=== PATIENT | female | born 1970 | race Caucasian/White ===

== ENCOUNTER 2018-10-12 16:22 | Emergency (ER) | payer MEDICAID ==
[~2018-10-12] VITALS: Ht 147.3 cm; Wt 47.7 kg
[2018-10-12 16:50] VITALS: BP 154/99
--- NOTE | 2018-10-12 20:00 | NUR ---
Patient transferred to bed 11 via wheelchair by nurse. RN evaluating patient and family at bedside.
--- NOTE | 2018-10-12 20:12 | NUR ---
Dr. Joyner evaluating patient at bedside.
[2018-10-12] MEDS ORDERED: PROCHLORPERAZINE 10 MG/2 ML VIAL IVP ONE (20:15)
[2018-10-12] MEDS ORDERED: KETOROLAC 30 MG/ML VIAL IVP ONE (20:15)
--- NOTE | 2018-10-12 20:23 | NUR ---
48 Y/O F PRESENTED TO ED WITH HEADACHE X3 DAYS. AAO4. PER PT HEADACHE IS SHARP AND THROBBING. HAS BEEN EXPERIENCING DIZZINESS. C/O OF BEING FATIGUED. NO VISION CHANGES NOTED. DENIES PMH. NKA. BEDRAILS X2 UP. HOB ELEVATED FOR COMFORT. MD NOTIFIED. WILL CONTINUET TO MONITOR.
[2018-10-12] MEDS ORDERED: INSULIN REGULAR, HUMAN 100 UNIT/ML VIAL SUBQ ONE (21:05)
[2018-10-12] MEDS ORDERED: NACL 0.9% 1,000 ML IV ONE (21:05)
[2018-10-12 21:28] LABS: BASOPHILS % (AUTO) 0.4 % (0.0-2.0); EOSINOPHILS # (AUTO) 0.1 K/uL (0-0.4); EOSINOPHILS % (AUTO) 0.8 % (0.0-4.0); HEMATOCRIT 43.4 % (36-48); HEMOGLOBIN 14.6 g/dL (12.0-16.0); LYMPHOCYTES # (AUTO) 2.5 K/uL (2.5-16.5); LYMPHOCYTES % (AUTO) 32.2 % (20.5-51.1); MEAN CORPUSCULAR HEMOGLOBIN 29 pg (27-31); MEAN CORPUSCULAR HGB CONC 34 g/dL (33-37); MEAN CORPUSCULAR VOLUME 86.4 fL (80-94); MONOCYTES # (AUTO) 0.1 K/uL (0.8-1.0); MONOCYTES % (AUTO) 1.7 % (1.7-9.3); NEUTROPHILS % (AUTO) 64.9 % (42.2-75.2); PLATELET COUNT (AUTO) 299 K/uL (140-450); RED BLOOD CELL COUNT(AUTO) 5.02 MIL/uL (4.20-5.40); WHITE BLOOD COUNT (AUTO) 7.7 K/uL (4.8-10.8)
[2018-10-12 21:34] LABS: APPEARANCE,URINE HAZY (CLEAR); BILIRUBIN,URINE NEGATIVE (NEGATIVE); BLOOD, URINE 1+ (NEGATIVE); COLOR,URINE YELLOW (YELLOW); LEUKOCYTE ESTERASE ,URINE NEGATIVE (NEGATIVE); NITRITE, URINE NEGATIVE (NEGATIVE); UGLUCOSE NEGATIVE (NEGATIVE)
--- NOTE | 2018-10-12 21:50 | NUR ---
BS 51. NOTIFIED ADND ORDER D50.
[2018-10-12] MEDS ORDERED: DEXTROSE 50% 50 ML SYR IVP ONE ×3 (21:55→23:20)
[2018-10-12 22:20] LABS: ACETONE, SERUM NEGATIVE (NEGATIVE)
[2018-10-12 22:30] LABS: ANION GAP 12.7 (8-16); CARBON DIOXIDE 27.8 mmol/L (21-32); CHLORIDE 101 mmol/L (98-107); CREATININE 0.6 mg/dL (0.6-1.3); GFR ARICAN-AMERICAN 137 mL/min (>90); GLUCOSE 108 mg/dL (74-106); POTASSIUM 3.5 mmol/L (3.5-5.1); SODIUM SERUM 138 mmol/L (136-145); UREA NITROGEN, BLOOD 5 mg/dL (7-18)
--- NOTE | 2018-10-12 22:30 | NUR ---
Pt asleep with duaghter at bedside. easily arousable to verbal and pain stimuli. vss
[2018-10-12 22:38] LABS: WBC,URINE 0-5 /HPF (0-5)
[2018-10-12 22:43] LABS: ALBUMIN 3.7 g/dL (3.4-5.0); ASPARTATE AMINOTRANSFERASE 21 U/L (15-37); TOTAL BILIRUBIN 0.2 mg/dL (0.0-1.0)
--- NOTE | 2018-10-12 23:10 | NUR ---
BS 110. notifed and ordered D50. order carried out.
--- NOTE | 2018-10-12 23:50 | NUR ---
BS 184. NOTIFED. PT STABLE.
[2018-10-13 00:05] VITALS: BP 114/69
--- NOTE | 2018-10-13 00:05 | NUR ---
Patient discharged with v/s stable. Written and verbal after care instructions given and explained. Patient alert, oriented and verbalized understanding of instructions. Ambulatory with steady gait. All questions addressed prior to discharge. ID band removed. Patient advised to follow up with PMD. Rx of Fioricet given. Patient educated on indication of medication including possible reaction and side effects. Opportunity to ask questions provided and answered.
== END 2018-10-13 00:05 | disposition home or self-care (01) ==
LOC: MED 16:22
DX: G43.909 Migraine, unspecified, not intractable, without status migrainosus (principal); R73.9 Hyperglycemia, unspecified
CPT/HCPCS: 36415; 80053; 81001; 81025; 82009; 82948; 85025; 96361; 96374; 96375; 96376; 99283; J0780; J1815; J1885; J7030